=== PATIENT | female | born 1950 | race Caucasian/White ===

== ENCOUNTER 2020-12-20 03:28 | Emergency (ER) | payer MEDICARE ==
[~2020-12-20] VITALS: Ht 167.6 cm; Wt 85.0 kg
--- NOTE | 2020-12-20 04:13 | RAD ---
Three-view left ankle radiographs 12/20/2020 CLINICAL HISTORY: Fall with injury left ankle. AP, lateral and oblique digital radiographs left ankle were obtained. An acute oblique fracture of th e distal left fibula 2.5 cm superior to the inferior aspect lateral malleolus of the left ankle is se en. The alignment of the fracture fragments is near-anatomic. There is associated soft tissue swellin g. Moderate degenerative changes are seen involving the left ankle joint. Moderate enthesophyte forma tion seen involving the posterior left calcaneus. IMPRESSION: Acute fracture of the distal left fibula near the lateral malleolus of the left ankle as discussed above. Electronically signed by: Josh Marie MD (12/20/2020 4:10 AM) [id number]
--- NOTE | 2020-12-20 04:49 | PHYS DOC ---
Past Medical History Past Medical History: Hypertension Past Surgical History: , Tonsillectomy Smoking Status: Never Smoker Alcohol Use: None Adult General Chief Complaint Chief Complaint: ANKLE PROBLEM HPI HPI Patient is a 70 year old female with a past medical history of hypertension presents emergency department with left ankle injury. Patient states that she was ambulating her bed when she fell down steps and causing inversion injury to left ankle. States since not been able to ambulate on the left foot. Denies any head injury or loss conscious. Denies any neck, chest, back or abdominal pain. Review of Systems Review of Systems Constitutional: Denies fever or chills [] Eyes: Denies change in visual acuity, redness, or eye pain [] HENT: Denies nasal congestion or sore throat [] Respiratory: Denies cough or shortness of breath [] Cardiovascular: No additional information not addressed in HPI [] GI: Denies abdominal pain, nausea, vomiting, bloody stools or diarrhea [] : Denies dysuria or hematuria [] Musculoskeletal: Denies back pain or joint pain [] Integument: Denies rash or skin lesions [] Neurologic: Denies headache, focal weakness or sensory changes [] Endocrine: Denies polyuria or polydipsia [] All other systems were reviewed and found to be within normal limits, except as documented in this note. Allergies Allergies Allergies Coded Allergies Type Severity Reaction Last Updated Verified Sulfa (Sulfonamide Antibiotics) Allergy Intermediate 12/20/20 Yes codeine Allergy Intermediate 12/20/20 Yes hydrochlorothiazide Allergy Intermediate 12/20/20 Yes Physical Exam Physical Exam Constitutional: Well developed, well nourished, no acute distress, non-toxic appearance. [] HENT: Normocephalic, atraumatic, bilateral external ears normal, oropharynx moist, no oral exudates, nose normal. [] Eyes: PERRLA, EOMI, conjunctiva normal, no discharge. [] Neck: Normal range of motion, no tenderness, supple, no stridor. [] Cardiovascular:Heart rate regular rhythm, no murmur [] Lungs & Thorax: Bilateral breath sounds clear to auscultation [] Abdomen: Bowel sounds normal, soft, no tenderness, no masses, no pulsatile masses. [] Skin: Warm, dry, no erythema, no rash. [] Back: No tenderness, no CVA tenderness. [] Extremities: Significant ecchymosis with edema to bilateral malleoli of the left ankle more significant on the lateral portion, no cyanosis, no clubbing, ROM intact, no edema. [] Neurologic: Alert and oriented X 3, normal motor function, normal sensory function, no focal deficits noted. [] Psychologic: Affect normal, judgement normal, mood normal. [] Current Patient Data Vital Signs Vital Signs Date Time Temp Pulse Resp B/P (MAP) Pulse Ox O2 Delivery O2 Flow Rate FiO2 12/20/20 03:30 98.9 104 20 137/85 (102) 100 Room Air 98.9 EKG EKG [] Radiology/Procedures Radiology/Procedures [] Course & Med Decision Making Course & Med Decision Making Pertinent Labs and Imaging studies reviewed. (See chart for details) 70F presented to emergency department with clear injury to the left ankle. X- ray was obtained which demonstrates a lateral fibular fracture without any evidence of tibial fracture. Reported by radiologist as I am unable to view films at this time. Will place a splint and discharged with orthopedic surgery follow-up Dragon Disclaimer Dragon Disclaimer This electronic medical record was generated, in whole or in part, using a voice recognition dictation system. Departure Departure Impression: Primary Impression: Left fibular fracture Disposition: 01 DC HOME SELF CARE/HOMELESS Condition: GOOD Referrals: RODRIGO EMANUEL MD (PCP) Patient Instructions: Fibular Fracture, Ankle, Adult, Undisplaced, Treated with Immobilization Additional Instructions: EMERGENCY DEPARTMENT GENERAL DISCHARGE INSTRUCTIONS Thank you for coming to [facility] Emergency Department (ED) today and trusting us with you care. We trust that you had a positive experience in our Emergency Department. If you wish to speak to the department management, you may call the Director at [phone]. YOUR FOLLOW UP INSTRUCTIONS ARE FOLLOWS: 1. Do you have a private Doctor? If you do not have a private doctor, please ask for a resource list of physicians or clinics that may be able to assist you with follow up care. 2. The Emergency Physicain has interpreted your x-rays. The X-Ray specialist will also review them. If there is a change in the findings, you will be notified in 48 hours when at all possible. 3. A lab test or culture has been done, your results will be reviewed and you will be notified if you need a change in treatment. ADDITIONAL INSTRUCTIONS AND INFORMATION: 1. Your care today has been supervised by a physician who is specially trained in emergency care. Many problems require more than one evaluation for a complete diagnosis and treatment. We recommend that you schedule your follow up appointment as recommended to ensure complete treatment of you illness or injury. If you are unable to obtain follow up care and continue to have a problem, or if your condition worsens, we recommend that you return to the ED. 2. We are not able to safely determine your condition over the phone nor are we able to give sound medical advice over the phone. For these safety reasons, if you call for medical advice we will ask you to come to the ED for further evaluation. 3. If you have any questions regarding these discharge instructions please call the ED at [phone]. SAFETY INFORMATION: In the interest of safety, wellness, and injury prevention; we encourage you to wear your sealbelt, if you smoke; quite smoking, and we encourage family to use a protective helmet for bicycling and other sporting events that present an increased risk for head injury. IF YOUR SYMPTOMS WORSEN OR NEW SYMPTOMS DEVELOP, OR YOU HAVE CONCERNS ABOUT YOUR CONDITION; OR IF YOUR CONDITION WORSENS WHILE YOU ARE WAITING FOR YOUR FOLLOW UP APPOINTMENT; EITHER CONTACT YOUR PRIMARY CARE DOCTOR, THE PHYSICIAN WHOSE NAME AND NUMBER YOU WERE GIVEN, OR RETURN TO THE ED IMMEDIATELY. MATTHEW GORE MD Dec 20, 2020 04:49
[2020-12-20 06:09] VITALS: BP 107/70
== END 2020-12-20 06:20 | disposition home or self-care (01) ==
LOC: ER 03:28
DX: S82.492A Other fracture of shaft of left fibula, initial encounter for closed fracture (principal); I10 Essential (primary) hypertension; Z88.2 Allergy status to sulfonamides; Z88.5 Allergy status to narcotic agent; Z88.8 Allergy status to other drugs, medicaments and biological substances; Z98.890 Other specified postprocedural states; W18.39XA Other fall on same level, initial encounter; Y93.89 Activity, other specified; Y92.89 Other specified places as the place of occurrence of the external cause; Y99.8 Other external cause status
CPT/HCPCS: 29515; 73610; 99285